=== PATIENT | male | born 1985 | race Caucasian/White ===

== ENCOUNTER 2017-11-06 11:06 | Inpatient (IN) ==
[2017-11-06] MEDS ORDERED: 0.9 % Sodium Chloride 1,000 ML IVC ONE ×2 (11:23→12:32)
[2017-11-06] MEDS ORDERED: 0.9 % Sodium Chloride 1,000 ML ONE (11:24)
[2017-11-06] MEDS ORDERED: Ondansetron 4 MG/2 ML VIAL ONE (11:27)
[2017-11-06] MEDS ORDERED: Ondansetron 4 MG/2 ML VIAL IVP ONE (11:32)
[2017-11-06] MEDS ORDERED: Pantoprazole 40 MG VIAL IVP ONE (11:32)
[2017-11-06] MEDS ORDERED: Racepinephrine Neb 0.5 ML VIAL IH ONE (11:40)
[2017-11-06 11:44] LABS: Basophils # 0.1 K/mcL (0.0-0.2); Basophils % 0.4 %; Eosinophils % 0.1 %; Hematocrit 47.2 % (37.5-50.1); Hemoglobin 17.1 g/dL (12.9-16.9); Immature Granulocytes % 0.6 % (0-4); Lymphocytes # 1.1 K/mcL (0.6-4.6); Mean Corpuscular HGB Conc 36.2 g/dL (31.6-35.5); Mean Corpuscular Hemoglobin 31.9 pg (28.0-33.3); Mean Corpuscular Volume 88.1 fL (83.0-100.0); Mean Platelet Volume 9.9 fL (9.4-12.4); Monocytes % 5.3 %; Neutrophils # 16.7 K/mcL (1.6-8.9); Platelet Count 356 K/mcL (140-400); Red Blood Count 5.36 M/mcL (4.19-5.50); Red Cell Distribution Width 12.6 % (11.5-14.5); Segmented Neutrophils % 87.6 %
--- NOTE | 2017-11-06 11:46 | Emergency Department Note ---
Disposition Clinical Impression: UGIB (upper gastrointestinal bleed) Medication reaction Qualifiers: Encounter type: initial encounter Qualified Code(s): T50.905A - Adverse effect of unspecified drugs, medicaments and biological substances, initial encounter Disposition: Still a Patient Condition: Fair Forms: ED Satisfaction Letter, Work/School Release General Adult HPI - General Chief complaint: ED Abdominal Pain Stated complaint: Vomiting blood Time Seen by Provider: 11/06/17 11:19 Source: patient Limitations: no limitations - History of Present Illness HPI Narrative: ED ATTESTATION NOTE: I examined this patient and my medical decision-making was reviewed with the Resident Physician/MACHINE FANCY STITCHER/PA/Student. I have personally performed a face to face evaluation on this patient & I agree with the documented findings, disposition and treatment plan as described except to the extent set forth below. Patient was seen with emergency medicine resident Shu Sy please see copy of her note for details of this encounter Briefly: 32-year-old male history of alcohol abuse is on disulfiram drank last night vomiting since 7:30 this morning since 8 AM blood in vomitus. He has some swelling of his uvula and posterior pharyngeal soft tissues. But no difficulty swallowing or phonating. He is not tachycardic he is actually hypertensive. Patient is can be given IV steroids and racemic epinephrine a liter of normal saline skin given IV Protonix IV Zofran screening get noncontrast CT of the thorax and abdominal pelvic areas. Patient getting screening labs. Admission highly anticipated. Disposition pending. Providing 45 minutes of critical care service for this patient. Pain Scale: 10 - Related Data Previous Rx's Medication Instructions Recorded Clindamycin [Cleocin] 450 mg PO Q6HR 7 Days capsule 07/18/15 cephALEXin [Keflex] 500 mg PO QID 7 Days capsule 09/22/15 HYDROcodone/Acet 5/325 mg [[place] 1 tab PO Q6H PRN #12 tab 09/23/16 5-325 mg] Hyoscyamine SL [Levsin SL] 0.125 mg SL TID #21 tab.subl 07/19/17 Ondansetron HCl [Zofran] 4 mg PO Q8HR PRN #21 tab 07/19/17 Cephalexin [Keflex] 500 mg PO TID #21 capsule 07/30/17 Sulfamethoxazole/Trimeth DS 1 each PO BID #14 tablet 07/30/17 [Bactrim DS] Albuterol Sulfate [Albuterol 2 puff IH Q4HR #1 hfa.aer.ad 09/07/17 Inhaler] Allergies Allergy/AdvReac Type Severity Reaction Status Date / Time No Known Allergies Allergy Verified 09/07/17 10:27 Past Medical History - Past Medical History Medical history: Reports: hypertension Surgical history: Reports: non-contributory Psychiatric history: Reports: anxiety - Social History Smoking Status: Never smoker Smokeless Tobacco Status: No Alcohol use: Reports: occasionally, heavy Drug use: Reports: marijuana Physical Exam - General Limitations: no limitations General appearance: alert, in distress Course Vital Signs Pulse Rate 103 11/06/17 11:13 Respiratory Rate 22 11/06/17 11:13 Blood Pressure 178/117 11/06/17 11:13 O2 Sat by Pulse Oximetry 96 11/06/17 11:13 Temperature 97.5 F L 11/06/17 11:31 Pulse Rate 103 11/06/17 11:31 Respiratory Rate 22 11/06/17 11:31 Blood Pressure 178/117 11/06/17 11:31 O2 Sat by Pulse Oximetry 96 11/06/17 11:31 Oxygen Delivery Oxygen Delivery Room Air
--- NOTE | 2017-11-06 11:47 | Emergency Department Note ---
Disposition Clinical Impression: UGIB (upper gastrointestinal bleed), Hematemesis with nausea, Lactic acidosis, Dehydration Medication reaction Qualifiers: Encounter type: initial encounter Qualified Code(s): T50.905A - Adverse effect of unspecified drugs, medicaments and biological substances, initial encounter Disulfiram adverse reaction Qualifiers: Encounter type: initial encounter Qualified Code(s): T50.6X5A - Adverse effect of antidotes and chelating agents, initial encounter Disposition: Admitted As Inpatient Condition: Fair General Adult HPI - General Chief complaint: ED Abdominal Pain Stated complaint: Vomiting blood Time Seen by Provider: 11/06/17 11:19 Source: patient Limitations: no limitations Nursing Notes Reviewed: Yes Vital Signs Reviewed: Yes - History of Present Illness HPI Narrative: Patient is a 32-year-old male with chronic alcohol use and hypertension who presents with chief complaint of hematemesis that started approximately 4 hours prior to arrival. Patient was started on Disulfirum recently for his alcohol use. He states he has been having intermittent episodes of abdominal pain and vomiting for the past few days. He last drank 4 shots of whiskey yesterday evening. This morning he woke up vomiting. Half an hour later around 0800, he started noticing dark coffee-ground like blood. He states he is starting to feel weak. This is associated with epigastric sharp abdominal pain and substernal sharp chest pain that is constant. He denies shortness of breath. He is continuing to have multiple episodes of this vomiting and his chest and abdominal pain is persistent. He is presenting here for further management. Pain Scale: 10 - Related Data Home Medications Medication Instructions Recorded Confirmed No Known Home Drugs 11/06/17 11/06/17 Allergies Allergy/AdvReac Type Severity Reaction Status Date / Time No Known Allergies Allergy Verified 11/06/17 12:45 All systems ED: reviewed and negative except as stated. Review of Systems: As Per HPI Constitutional: Denies: fever, chills Eyes: Denies: vision change ENT ED: Reports: throat pain. Denies: congestion Cardiovascular: Reports: chest pain. Denies: palpitations Respiratory: Denies: cough, dyspnea Gastrointestinal: Reports: hematemesis Genitourinary: Denies: dysuria Musculoskeletal: Denies: back pain Integumentary: Denies: rash Neurological: Reports: weakness. Denies: headache Hematological/Lymphatic: Reports: easy bleeding Past Medical History - Past Medical History Attestation: Yes The following information was validated with the patient. Source: patient Medical history: Reports: hypertension Surgical history: Reports: non-contributory Psychiatric history: Reports: anxiety - Social History Smoking Status: Never smoker Smokeless Tobacco Status: No Alcohol use: Reports: occasionally, heavy Drug use: Reports: marijuana Physical Exam - General Limitations: no limitations General appearance: alert, in distress (Pale-appearing, vomiting up coffee ground emesis) - Head Head exam: atraumatic, normocephalic - Eye Eye exam: Present: EOMI. Absent: scleral icterus - ENT ENT exam: other (There is bright red blood in his posterior oropharynx. Posterior oropharynx also has mild edema.) - Respiratory Respiratory exam: Present: normal lung sounds bilaterally. Absent: respiratory distress - Cardiovascular Cardiovascular exam: Present: regular rate, normal rhythm, normal heart sounds - Abdominal Exam Abdominal exam: Present: soft, Non-Tender - Extremities Exam Extremities exam: Present: full ROM - Neurological Exam Neurological exam: Present: alert, oriented X3 - Psychiatric Psychiatric exam: Present: normal affect, normal mood - Skin Skin exam: Present: warm, dry, pallor Course Vital Signs Pulse Rate 103 11/06/17 11:13 Respiratory Rate 22 11/06/17 11:13 Blood Pressure 178/117 11/06/17 11:13 O2 Sat by Pulse Oximetry 96 11/06/17 11:13 Temperature 97.9 F 11/06/17 14:29 Pulse Rate 84 11/06/17 14:29 Respiratory Rate 16 11/06/17 14:29 Blood Pressure 152/104 11/06/17 14:29 O2 Sat by Pulse Oximetry 100 11/06/17 14:29 Oxygen Delivery Oxygen Delivery Room Air Medical Decision Making - [facility] Narrative Medical decision making narrative: Patient is presenting with active coffee ground hematemesis. 2 peripheral IVs were initiated. Patient is borderline tachycardic. Patient's vomiting may be secondary to the patient consuming alcohol while on disulfiram. We have a concern for esophageal tears, bleeding varices, Boerhaave syndrome. We will send CBC, BMP, hepatic panel, lipase. Patient is also complaining of some chest pain. We will get CT of his chest and abdomen without contrast. We will give Zofran 8 mg, Protonix, IV fluids. 11:40 Patient was complaining of his throat feeling swollen. We reevaluated him. He has bright red blood in his posterior oropharynx. There is some mild swelling. At this time racemic epinephrine and methylprednisolone was ordered. 11:50 Respiratory therapy at bedside. Patient is receiving racemic epinephrine at this time. Labs reviewed. Lactic acid is 4. Hemoglobin is 17.1. Potassum 2.9. Will replace. 12:30 Upon reevaluation, the patient is feeling slightly better. He is looking more stable. Oral examination showed less bright red blood and no increase in his posterior pharyngeal edema. He can go to CT at this time. He is vomiting less. Give another liter of fluids as the patient is tachycardic. Alcohol level 130. 14:15 Vitals improved after 2 liters IV normal saline. CT results reviewed. Patient has no pneumomediastinum, Boerhaave's. Results show moderate hiatal hernia with nonspecific thickening of distal esophagus and herniated stomach which could represent esophagitis or GERD. Upper endoscopy was recommended per radiologist. Hospitalist consulted for admission for disulfiram reaction, lactic acidosis, and dehydration. Findings discussed with patient and his girlfriend. All questions answered. They are agreeable to plan of care. 14:25 Discussed with hospitalist, Dr. Stringer, who will accept admission. Consult for GI placed. - Medical Records Medical records reviewed: Yes I reviewed the patient's medical records. - Lab Data Lab results reviewed: Yes I reviewed the patient's lab results. Result diagrams: 11/06/17 11:21 11/06/17 11:21 Lab Results 11/06/17 11/06/17 11/06/17 Range/Units 11:21 11:21 11:27 WBC 19.1 H (4.3-11.1) K/mcL RBC 5.36 (4.19-5.50) M/mcL Hgb 17.1 H (12.9-16.9) g/dL Hct 47.2 (37.5-50.1) % MCV 88.1 (83.0-100.0) fL MCH 31.9 (28.0-33.3) pg MCHC 36.2 H (31.6-35.5) g/dL RDW 12.6 (11.5-14.5) % Plt Count 356 (140-400) K/mcL MPV 9.9 (9.4-12.4) fL Immature Gran % 0.6 (0-4) % Seg Neutrophils % 87.6 % Lymphocytes % 6.0 % Monocytes % 5.3 % Eosinophils % 0.1 % Basophils % 0.4 % Neutrophils # 16.7 H (1.6-8.9) K/mcL Lymphocytes # 1.1 (0.6-4.6) K/mcL Monocytes # 1.0 (0.0-1.3) K/mcL Eosinophils # 0.0 (0.0-0.6) K/mcL Basophils # 0.1 (0.0-0.2) K/mcL Sodium 139 (136-145) mEq/L Potassium 2.9 L (3.5-5.1) mEq/L Chloride 100 (98-107) mEq/L Carbon Dioxide 19 L (23-29) mEq/L BUN 15 (6-20) mg/dL Creatinine 0.92 (0.70-1.30) mg/dL Est GFR ( Amer) > 60 (> 60) Est GFR (Non-Af Amer) > 60 (> 60) BUN/Creatinine Ratio 16 (6-26) Glucose 185 H (70-105) mg/dL Calculated Osmolality 294 (280-300) Lactic Acid 4.0 H* (0.5-2.2) mmol/L Calcium 9.4 (8.6-10.3) mg/dL Magnesium 2.0 (1.6-2.6) mg/dL Total Bilirubin 0.5 (0.3-1.0) mg/dL Direct Bilirubin 0.1 (0.0-0.2) mg/dL Indirect Bilirubin 0.4 (0.0-1.2) mg/dL AST 34 (13-39) Units/L ALT 16 (7-52) Units/L Alkaline Phosphatase 89 (34-104) Units/L Serum Total Protein 7.7 (6.4-8.9) g/dL Albumin 5.0 (3.5-5.7) g/dL Globulin 2.7 (2.4-3.5) g/dL Albumin/Globulin Ratio 1.9 (1.1-2.2) Amylase 55 (29-103) Units/L Lipase 16 (11-82) Units/L Urine Color (Yellow) Urine Clarity (Clear) Urine pH (5.0-8.0) pH Units Ur Specific [place] (1.010-1.025) Urine Protein (Neg-Trace) mg/dL Urine Glucose (UA) (Normal) mg/dL Urine Ketones (Negative) mg/dL Urine Blood (Negative) Urine Nitrite (Negative) Urine Bilirubin (Negative) Urine Urobilinogen (Normal) mg/dL Ur Leukocyte Esterase (Negative) Urine Microscopic RBC (0-3) per hpf Urine Microscopic WBC (0-3) per hpf Ur Squamous Epith Cells (None-Few) per lpf Urine Bacteria (None-Few) per hpf Hyaline Casts (None-Few) per lpf Ur Culture Indicated? (NO) Ethyl Alcohol 130 H (Less than 10) mg/dL 11/06/17 Range/Units 13:38 WBC (4.3-11.1) K/mcL RBC (4.19-5.50) M/mcL Hgb (12.9-16.9) g/dL Hct (37.5-50.1) % MCV (83.0-100.0) fL MCH (28.0-33.3) pg MCHC (31.6-35.5) g/dL RDW (11.5-14.5) % Plt Count (140-400) K/mcL MPV (9.4-12.4) fL Immature Gran % (0-4) % Seg Neutrophils % % Lymphocytes % % Monocytes % % Eosinophils % % Basophils % % Neutrophils # (1.6-8.9) K/mcL Lymphocytes # (0.6-4.6) K/mcL Monocytes # (0.0-1.3) K/mcL Eosinophils # (0.0-0.6) K/mcL Basophils # (0.0-0.2) K/mcL Sodium (136-145) mEq/L Potassium (3.5-5.1) mEq/L Chloride (98-107) mEq/L Carbon Dioxide (23-29) mEq/L BUN (6-20) mg/dL Creatinine (0.70-1.30) mg/dL Est GFR ( Amer) (> 60) Est GFR (Non-Af Amer) (> 60) BUN/Creatinine Ratio (6-26) Glucose (70-105) mg/dL Calculated Osmolality (280-300) Lactic Acid (0.5-2.2) mmol/L Calcium (8.6-10.3) mg/dL Magnesium (1.6-2.6) mg/dL Total Bilirubin (0.3-1.0) mg/dL Direct Bilirubin (0.0-0.2) mg/dL Indirect Bilirubin (0.0-1.2) mg/dL AST (13-39) Units/L ALT (7-52) Units/L Alkaline Phosphatase (34-104) Units/L Serum Total Protein (6.4-8.9) g/dL Albumin (3.5-5.7) g/dL Globulin (2.4-3.5) g/dL Albumin/Globulin Ratio (1.1-2.2) Amylase (29-103) Units/L Lipase (11-82) Units/L Urine Color Yellow (Yellow) Urine Clarity Clear (Clear) Urine pH 7.0 (5.0-8.0) pH Units Ur Specific [place] 1.015 (1.010-1.025) Urine Protein 30 H (Neg-Trace) mg/dL Urine Glucose (UA) 500 H (Normal) mg/dL Urine Ketones 15 H (Negative) mg/dL Urine Blood Negative (Negative) Urine Nitrite Negative (Negative) Urine Bilirubin Negative (Negative) Urine Urobilinogen Normal (Normal) mg/dL Ur Leukocyte Esterase Negative (Negative) Urine Microscopic RBC 0-3 (0-3) per hpf Urine Microscopic WBC 0-3 (0-3) per hpf Ur Squamous Epith Cells None Seen (None-Few) per lpf Urine Bacteria None Seen (None-Few) per hpf Hyaline Casts None Seen (None-Few) per lpf Ur Culture Indicated? NO (NO) Ethyl Alcohol (Less than 10) mg/dL - Radiology Data Radiology results reviewed: Yes I reviewed the patient's radiology results. Abdomen/Pelvis CT 11/06/17 11:33 IMPRESSION: Chest: No acute findings on this noncontrast chest CT. Abdomen and pelvis: Moderate hiatal hernia with nonspecific thickening of the distal esophagus and herniated stomach. Findings could represent esophagitis, or gastroesophageal reflux. Other etiologies are not excluded. This could potentially cause patient's reported symptoms. Recommend upper endoscopy for further evaluation. Markedly distended urinary bladder with mild bilateral renal pelviectasis. No evidence of renal or ureteral calculus. Mild nonspecific periapical nephric stranding appears reasonably symmetric. No discrete adrenal nodule. Nonspecific inflammation in the region of the bilateral adrenal glands may be from adjacent perinephric stranding. D/ / Jason Bagley MD / Jason Bagley MD Interpreting Provider: Jason Bagley MD Chest CT 11/06/17 11:33 IMPRESSION: Chest: No acute findings on this noncontrast chest CT. Abdomen and pelvis: Moderate hiatal hernia with nonspecific thickening of the distal esophagus and herniated stomach. Findings could represent esophagitis, or gastroesophageal reflux. Other etiologies are not excluded. This could potentially cause patient's reported symptoms. Recommend upper endoscopy for further evaluation. Markedly distended urinary bladder with mild bilateral renal pelviectasis. No evidence of renal or ureteral calculus. Mild nonspecific periapical nephric stranding appears reasonably symmetric. No discrete adrenal nodule. Nonspecific inflammation in the region of the bilateral adrenal glands may be from adjacent perinephric stranding. D/ / Jason Bagley MD / Jason Bagley MD Interpreting Provider: Jason Bagley MD - EKG Data EKG #1 EKG attestation: Yes I reviewed and interpreted this EKG. EKG results narrative: EKG on 11/06/2017 at 11:25 shows sinus rhythm with heart rate 92. NE interval 166. QT 383. QTC 474. No ST elevation compared to EKG on 07/19/2017. This EKG showed sinus bradycardia. Otherwise there is no other changes.
[2017-11-06 12:07] LABS: Alanine Aminotransferase 16 Units/L (7-52); Albumin/Globulin Ratio 1.9 (1.1-2.2); Alkaline Phosphatase 89 Units/L (34-104); Amylase 55 Units/L (29-103); Aspartate Amino Transferase 34 Units/L (13-39); BUN/Creatinine Ratio 16 (6-26); Bilirubin,Direct 0.1 mg/dL (0.0-0.2); Bilirubin,Indirect 0.4 mg/dL (0.0-1.2); Bilirubin,Total 0.5 mg/dL (0.3-1.0); Blood Urea Nitrogen 15 mg/dL (6-20); Calcium 9.4 mg/dL (8.6-10.3); Carbon Dioxide 19 mEq/L (23-29); Chloride 100 mEq/L (98-107); Globulin 2.7 g/dL (2.4-3.5); Glucose 185 mg/dL (70-105); Lipase 16 Units/L (11-82); Osmolality,Calculated 294 (280-300); Potassium 2.9 mEq/L (3.5-5.1); Sodium 139 mEq/L (136-145); Total Protein 7.7 g/dL (6.4-8.9); eGFR For Non-African Americans > 60 (> 60)
[2017-11-06 12:55] LABS: Ethanol 130 mg/dL (Less than 10)
[2017-11-06 13:52] LABS: Bilirubin,Urine Negative (Negative); Blood,Urine Negative (Negative); Color,Urine Yellow (Yellow); Glucose,Urine (UA) 500 mg/dL (Normal); Ketones,Urine 15 mg/dL (Negative); Leukocyte Esterase,Urine Negative (Negative); Nitrite,Urine Negative (Negative); Protein,Urine 30 mg/dL (Neg-Trace); Specific Gravity,Urine 1.015 (1.010-1.025); Urobilinogen,Urine Normal (Normal)
[2017-11-06 13:55] LABS: Bacteria,Urine None Seen per hpf (None-Few); Hyaline Casts,Urine None Seen per lpf (None-Few); RBC,Urine 0-3 per hpf (0-3); Squamous Epithelial Cell,Urine None Seen per lpf (None-Few); WBC,Urine 0-3 per hpf (0-3)
[2017-11-06 13:59] LABS: Clarity,Urine Clear (Clear)
--- NOTE | 2017-11-06 15:59 | Internal Med History&Physical ---
Date of Encounter: 11/06/17 Time of Encounter: 15:00 Internal Medicine - H&P: HPI Chief complaint: Nausea and vomiting with hematemesis Admitted From: Home History of present illness: Patient is a 32-year-old male with significant history of alcohol abuse/ dependence who presents to the ER on 11/06/17 due to nausea and vomiting. Patient reports that he was trying to stop drinking and was placed on Antabuse by physician but apparently started drinking again and has experienced nausea and vomiting with hematemesis. Patient was concerned so decided come into the ER for evaluation. In the ER, patient was found to have metabolic acidosis with a lactic acid of 4.0 and a anion gap of 20. Patient was found to have a blood alcohol level of 13 0 mg/dL. Patient will be admitted to the progressive unit for about acidosis secondary to alcohol intoxication. Past Med Surg Social Fam HX - Past Medical History Medical history: hypertension Additional medical history: collapsed tricuspid valve, damaged aortic valve Psychiatric history: anxiety - Past Surgical History Surgical History: non-contributory Additional surgical history: facial reconstruction. hydrocele surgery,. lymph node removal - Social History Smoking Status: Never smoker Smokeless Tobacco Status: No Alcohol use: occasionally, heavy Drug use: marijuana - Additional Family History Additional family history: Noncontributory Internal Medicine - H&P: Meds No Known Home Drugs 11/06/17 [History] 3 Allergy/AdvReac Type Severity Reaction Status Date / Time No Known Allergies Allergy Verified 11/06/17 12:45 All Systems PM: A 10-system review of systems was performed and is negative for pertinent findings except as documented above in the HPI. - Constitutional Vitals: Temp Pulse Resp BP Pulse Ox 97.9 F 79 16 161/112 100 11/06/17 14:29 11/06/17 15:27 11/06/17 15:27 11/06/17 15:27 11/06/17 15:27 General appearance: Present: no acute distress Exam: As below - Eye Eye exam: Present: normal appearance - ENT ENT exam: Present: mucous membranes moist - Respiratory Respiratory exam: Present: CTAB. Absent: accessory muscle use, rales, rhonchi, wheezes - Cardiovascular Cardiovascular exam: Present: RRR, +S1, +S2. Absent: diastolic murmur, gallop, rubs, systolic murmur - GI/Abdominal GI/Abdominal exam: Present: tenderness (Epigastric and right upper quadrant tenderness to palpation). Absent: distended - Extremities Exam Extremities exam: Absent: pedal edema - Neurological Exam Neurological exam: Present: oriented X3 - Psychiatric Psychiatric exam: Present: normal mood - Skin Skin exam: Present: normal color Internal Med - H&P Results - Labs CBC & Chem 7: 11/06/17 11:21 11/06/17 11:21 - Assessment and plan (1) Disulfiram adverse reaction Current Visit: Yes Status: Acute Assessment and plan: Patient started drinking on Antabuse Supportive care with IV fluids and antiemetics Qualifiers: Encounter type: initial encounter Qualified Code(s): T50.6X5A - Adverse effect of antidotes and chelating agents, initial encounter (2) Hematemesis with nausea Current Visit: Yes Status: Acute Assessment and plan: Patient reports of multiple episodes a hematemesis and was concerned and therefore came to the ER for evaluation. Patient's hemoglobin is stable and actually is hemoconcentrated Will continue to monitor (3) UGIB (upper gastrointestinal bleed) Current Visit: Yes Status: Acute Assessment and plan: Patient with a one-day history of hematemesis as above Patient is hemodynamically stable and without anemia Will continue to monitor (4) Lactic acidosis Current Visit: Yes Status: Acute Assessment and plan: Patient with a lactic acid of 4.0 and bicarbonate of 19; anion gap of 20 Suspect secondary to alcohol intoxication above Will continue IV fluids and monitor (5) Hypokalemia Current Visit: Yes Status: Acute Assessment and plan: Patient with potassium of 2.9 Will give potassium replacements and monitor (6) Alcohol abuse Current Visit: Yes Status: Acute Assessment and plan: Will place patient on CIWA protocol (7) DVT prophylaxis Current Visit: Yes Status: Acute Assessment and plan: Patient low risk and mobile - Time Spent With Patient Total time spent is greater than 50% in coordination of care (as documented) at patient's floor/unit and/or counseling patient:
[2017-11-06] MEDS ORDERED: Naloxone 0.4 MG/ML INJ IVP PRN (16:16)
[2017-11-06] MEDS ORDERED: 0.9 % Sodium Chloride 250 ML ONE (16:26)
[2017-11-06] MEDS ORDERED: 0.9 % Sodium Chloride 250 ML IVC ONE (16:31)
[2017-11-06 17:25] LABS: Hematocrit 45.1 % (37.5-50.1); Hemoglobin 16.2 g/dL (12.9-16.9)
[2017-11-06 17:35] LABS: Basophils % 0.1 %; Hematocrit 45.5 % (37.5-50.1); Hemoglobin 16.4 g/dL (12.9-16.9); Immature Granulocytes % 0.4 % (0-4); Immature Platelets 4.5 % (1.1-6.1); Lymphocytes # 0.3 K/mcL (0.6-4.6); Lymphocytes % 2.4 %; Mean Corpuscular Hemoglobin 32.4 pg (28.0-33.3); Mean Corpuscular Volume 89.9 fL (83.0-100.0); Mean Platelet Volume 10.1 fL (9.4-12.4); Monocytes # 0.3 K/mcL (0.0-1.3); Monocytes % 1.9 %; Neutrophils # 13.2 K/mcL (1.6-8.9); Platelet Count 256 K/mcL (140-400); Red Blood Count 5.06 M/mcL (4.19-5.50); Red Cell Distribution Width 12.5 % (11.5-14.5); Segmented Neutrophils % 95.2 %
[2017-11-06] MEDS: Ondansetron 4 MG/2 ML VIAL IVP PRN (17:56)
[2017-11-06] MEDS: Ringers Solution, Lactated 1,000 ML IVC SCH (17:56)
[2017-11-06] MEDS: Acetaminophen 325 MG TABLET PO PRN (20:07)
[2017-11-06] MEDS ORDERED: *HR* Promethazine 25 MG/ML VIAL IVP PRN (20:24)
[2017-11-06] MEDS ORDERED: Chloraseptic Spray 177 ML BOTTLE MM PRN (20:26)
[2017-11-06 21:13] LABS: Hematocrit 45.4 % (37.5-50.1); Hemoglobin 16.5 g/dL (12.9-16.9)
[2017-11-06 21:20] LABS: Amphetamine Screen,Urine Negative ng/mL (Cutoff=1000); Barbiturate Screen,Urine Negative ng/mL (Cutoff=200); Benzodiazepines Screen,Urine Negative ng/mL (Cutoff=200); Cannabinoid Screen,Urine Positive ng/mL (Cutoff = 50); Cocaine Screen,Urine Positive ng/mL (Cutoff= 300); Opiate Screen,Urine Negative ng/mL (Cutoff=300); Phencyclidine Screen,Urine Negative ng/mL (Cutoff=25)
[2017-11-07] MEDS: Ringers Solution, Lactated 1,000 ML IVC SCH ×2 (02:20→11:03)
[2017-11-07 06:13] LABS: INR 1.1; Prothrombin Time 11.9 Seconds (9.4-12.1)
[2017-11-07 06:24] LABS: BUN/Creatinine Ratio 16 (6-26); Blood Urea Nitrogen 13 mg/dL (6-20); Calcium 8.9 mg/dL (8.6-10.3); Carbon Dioxide 21 mEq/L (23-29); Chloride 107 mEq/L (98-107); Glucose 153 mg/dL (70-105); Magnesium 1.9 mg/dL (1.6-2.6); Osmolality,Calculated 287 (280-300); Potassium 3.9 mEq/L (3.5-5.1); Sodium 137 mEq/L (136-145); eGFR For Non-African Americans > 60 (> 60)
[2017-11-07 06:57] LABS: Troponin I < 0.03 ng/mL (< 0.04)
[2017-11-07] MEDS: Thiamine (B-1) 100 MG TABLET PO SCH (08:31)
[2017-11-07] MEDS: Vitamin B Complex/Vit C/Vit E 1 EACH TABLET PO SCH (08:31)
[2017-11-07] MEDS: Folic Acid 1 MG TABLET PO SCH (08:31)
--- NOTE | 2017-11-07 09:07 | Internal Med Progress Note ---
Hospitalist Progress Note - Encounter Date of Encounter: 11/07/17 Time of Encounter: 11:00 - Subjective Interval History: Patient presented with hematemesis secondary to drinking alcohol on Antabuse Patient found to have a blood alcohol level of 130mg/dl on admission and also positive for cocaine and THC on urine drug tox Patient scheduled for EGD on 11/08/17 - Exam Vitals: Temp Pulse Resp BP Pulse Ox 98.4 F 80 18 136/97 98 11/07/17 07:33 11/07/17 08:40 11/07/17 07:33 11/07/17 07:33 11/07/17 07:33 Exam: A Gen.: Nonacute distress, alert and oriented 3 ENT: Mucosal membranes moist Respiratory: Lungs are clear to auscultation bilaterally without any wheezing rhonchi or rales Cardiovascular: Normal S1 and S2 regular rate rhythm no murmurs rubs or gallops Abdomen: Soft, nontender and nondistended with positive bowel sounds Extremities: No lower extremity edema Skin: Normal color - Assessment and Plan (1) Disulfiram adverse reaction Current Visit: Yes Status: Acute Assessment and Plan: Patient started drinking on Antabuse Supportive care with IV fluids and antiemetics (2) Hematemesis with nausea Current Visit: Yes Status: Acute Assessment and Plan: Patient reported of multiple episodes a hematemesis on admission Hemoglobin stable; continue to monitor (3) UGIB (upper gastrointestinal bleed) Current Visit: Yes Status: Acute Assessment and Plan: Patient with a one-day history of hematemesis as above Patient is hemodynamically stable and without anemia Will continue to monitor (4) Elevated BP without diagnosis of hypertension Current Visit: Yes Status: Acute Assessment and Plan: Patient's blood pressures elevated but improving Suspect secondary to cocaine abuse Will continue to monitor (5) Lactic acidosis Current Visit: Yes Status: Acute Assessment and Plan: Resolved; suspect secondary to alcohol intoxication above Will decrease IV fluids (6) Hypokalemia Current Visit: Yes Status: Acute Assessment and Plan: Resolved; continue to monitor (7) Alcohol abuse Current Visit: Yes Status: Acute Assessment and Plan: Will place patient on CIWA protocol Case management consulted for drug alcohol dependence (8) Drug abuse Current Visit: Yes Status: Acute Assessment and Plan: Patient's urine drug tox positive for cocaine and THC Case management already consulted for drug/alcohol dependence (9) DVT prophylaxis Current Visit: Yes Status: Acute Assessment and Plan: Patient low risk and mobile - Time Spent with Patient Total time spent is greater than 50% in coordination of care (as documented) at patient's floor/unit and/or counseling patient: Internal Medicine: Result - Labs CBC & Chem 7: 11/07/17 09:08 11/07/17 05:49 Labs: Short CBC 11/06/17 11/06/17 11/06/17 Range/Units 17:00 17:00 21:03 WBC 13.9 H (4.3-11.1) K/mcL Hgb 16.2 16.4 16.5 (12.9-16.9) g/dL Hct 45.1 45.5 45.4 (37.5-50.1) % Plt Count 256 (140-400) K/mcL Neutrophils # 13.2 H (1.6-8.9) K/mcL BMP 11/06/17 11/07/17 21:03 05:49 Sodium 137 Potassium 3.8 D 3.9 Chloride 107 Carbon Dioxide 21 L BUN 13 Creatinine 0.79 Glucose 153 H Calcium 8.9 Cardiac Enzymes 11/07/17 Range/Units 05:49 Troponin I < 0.03 (< 0.04) ng/mL - ABG Interpretation ABG results: PT/INR, D-dimer PT 11.9 Seconds (9.4-12.1) 11/07/17 05:49 - VTE Reasons for not Prescribing Prophylaxis: Treatment not Indicated - Low risk for VTE Consult Discharge Plan - Plan Referrals: NONE,PCP [Primary Care Provider] - (1) Disulfiram adverse reaction Qualifiers: Encounter type: initial encounter Qualified Code(s): T50.6X5A - Adverse effect of antidotes and chelating agents, initial encounter
[2017-11-07 09:23] LABS: Basophils % 0.2 %; Eosinophils % 0.1 %; Hematocrit 42.1 % (37.5-50.1); Hemoglobin 15.3 g/dL (12.9-16.9); Lymphocytes # 0.6 K/mcL (0.6-4.6); Lymphocytes % 3.9 %; Mean Corpuscular HGB Conc 36.3 g/dL (31.6-35.5); Mean Corpuscular Hemoglobin 32.8 pg (28.0-33.3); Mean Corpuscular Volume 90.3 fL (83.0-100.0); Mean Platelet Volume 10.7 fL (9.4-12.4); Monocytes # 1.1 K/mcL (0.0-1.3); Monocytes % 6.3 %; Neutrophils # 14.7 K/mcL (1.6-8.9); Nucleated Red Blood Cells 0.2 /100 WBC (0); Platelet Count 236 K/mcL (140-400); Red Blood Count 4.66 M/mcL (4.19-5.50); Red Cell Distribution Width 12.5 % (11.5-14.5); Segmented Neutrophils % 88.5 %
[2017-11-07] MEDS: Ondansetron 4 MG/2 ML VIAL IVP PRN (16:51)
[2017-11-07] MEDS: *HR* LORazepam 2 MG/ML VIAL IVP PRN (20:34)
[2017-11-08] MEDS: Thiamine (B-1) 100 MG TABLET PO SCH (07:58)
[2017-11-08] MEDS: Vitamin B Complex/Vit C/Vit E 1 EACH TABLET PO SCH (07:58)
[2017-11-08] MEDS: Folic Acid 1 MG TABLET PO SCH (07:58)
[2017-11-08 09:00] LABS: Basophils % 0.2 %; Eosinophils % 0.1 %; Hematocrit 45.1 % (37.5-50.1); Hemoglobin 15.6 g/dL (12.9-16.9); Immature Granulocytes % 0.4 % (0-4); Immature Platelets 4.6 % (1.1-6.1); Lymphocytes # 1.2 K/mcL (0.6-4.6); Lymphocytes % 12.4 %; Mean Corpuscular HGB Conc 34.6 g/dL (31.6-35.5); Mean Corpuscular Hemoglobin 31.9 pg (28.0-33.3); Mean Corpuscular Volume 92.2 fL (83.0-100.0); Mean Platelet Volume 10.5 fL (9.4-12.4); Monocytes # 0.8 K/mcL (0.0-1.3); Monocytes % 8.9 %; Neutrophils # 7.4 K/mcL (1.6-8.9); Platelet Count 223 K/mcL (140-400); Red Blood Count 4.89 M/mcL (4.19-5.50); Red Cell Distribution Width 12.7 % (11.5-14.5)
[2017-11-08 10:00] LABS: BUN/Creatinine Ratio 20 (6-26); Blood Urea Nitrogen 17 mg/dL (6-20); Carbon Dioxide 26 mEq/L (23-29); Chloride 104 mEq/L (98-107); Glucose 104 mg/dL (70-105); Potassium 3.7 mEq/L (3.5-5.1); Sodium 136 mEq/L (136-145); eGFR For Non-African Americans > 60 (> 60)
[2017-11-08 10:01] LABS: Calcium 8.9 mg/dL (8.6-10.3); Osmolality,Calculated 284 (280-300)
--- NOTE | 2017-11-08 11:19 | Gastroenterology Consult Note ---
<GodfreyTriston espinal Peter - Last Filed: 11/08/17 11:17> Date of Encounter: 11/08/17 Time of Encounter: 10:10 - Assessment and plan (1) Hematemesis with nausea Current Visit: Yes Status: Acute Assessment and plan: Patient consuming alcohol while taking Antabuse. Hgb 15.3. Continue to monitor CBC. Plan for EGD today to r/o esophagitis, gastritis, duodenitis, PUD, MW tear , or AVM. Keep patient NPO for scope. (2) Disulfiram adverse reaction Current Visit: Yes Status: Acute Assessment and plan: Patient consuming alcohol while taking Antabuse. Qualifiers: Encounter type: initial encounter Qualified Code(s): T50.6X5A - Adverse effect of antidotes and chelating agents, initial encounter (3) Alcohol abuse Current Visit: Yes Status: Acute (4) Drug abuse Current Visit: Yes Status: Acute Assessment and plan: Positive for cocaine and marijuana. - Time Spent With Patient Total time spent is greater than 50% in coordination of care (as documented) at patient's floor/unit and/or counseling patient: GI History of Present Illness - Data of Consult Patient: new to practice Consult date: 11/08/17 Requesting Physician: Nahun Huang MD - Consult Narrative Reason for consult: Hematemesis History of present illness: Mr. Cheema is a 32 year old male with PMHx of HTN, alcohol abuse who presented to the ED with complaints of nausea and vomiting with hematemesis. He states he was trying to stop drinking and was started on Antabuse but started drinking again and experienced nausea, vomiting, and hematemesis. In the ER, patient was found to have metabolic acidosis with a lactic acid of 4.0 and a anion gap of 20. Patient was found to have a blood alcohol level of 130 mg/dL, positive for cocaine and marijuana. CT chest, A/P shows moderate hiatal hernia with a nonspecific thickening of the distal esophagus and herniated stomach which could represent esophagitis, or GERD. Procedures: None NSAIDs: None Anticoagulation: None Past Med Surg Social Fam HX - Past Medical History Medical history: hypertension, migraine Additional medical history: collapsed tricuspid valve, damaged aortic valve Psychiatric history: anxiety - Past Surgical History Surgical History: non-contributory Additional surgical history: facial reconstruction. hydrocele surgery,. lymph node removal. left leg surgery - Social History Smoking Status: Never smoker Smokeless Tobacco Status: No Alcohol use: heavy Drug use: marijuana - Gastrointestinal Gastrointestinal: Present: as per HPI - Constitutional Constitutional: as per HPI - EENT Eyes: as per HPI Ears: Present: as per HPI Nose, mouth and throat: Present: as per HPI - Cardiovascular Cardiovascular ROS: Present: as per HPI - Respiratory Respiratory IM: Present: as per HPI - Genitourinary Genitourinary: Absent: change in color, Urinary frequency - Neurological ROS Neurological GI: Present: as per HPI - Hematologic/Lymphatic Hematologic/Lymphatic pediatric: Present: as per HPI - Musculoskeletal Musculoskeletal ROS GI: Present: as per HPI - Integumentary Integumentary GI: Present: as per HPI - Psychiatric ROS Psychiatric GI: Present: as per HPI - Endocrine Endocrine IM: Present: as per HPI - Constitutional Vitals: Temp Pulse Resp BP Pulse Ox 98.4 F 78 18 151/107 98 11/08/17 07:51 11/08/17 07:51 11/08/17 07:51 11/08/17 07:51 11/08/17 07:51 General appearance: Present: cooperative, A&O X 3, no acute distress, answers questions appropriately - Head Head exam: Present: atraumatic, normocephalic - Eye Eye exam: Present: normal appearance, sclera anicteric - ENT ENT exam: Present: mucous membranes dry - Neck Neck exam general surgery: Present: normal inspection, trachea midline - Respiratory Respiratory exam: Present: CTAB. Absent: rales, rhonchi, wheezes - Cardiovascular Cardiovascular exam: Present: RRR, +S1, +S2 - GI/Abdominal GI/Abdominal exam: Present: soft, no peritoneal signs. Absent: distended, firm , guarding, tenderness - Rectal Rectal exam: Present: deferred - Extremities Exam Extremities exam: Present: warm - Neurological Exam Neurological exam: Present: no focal deficits - Psychiatric Psychiatric exam: Present: normal affect, normal mood - Skin Skin exam: Present: dry, intact, normal color, warm Results - Labs CBC & Chem 7: 11/08/17 08:23 11/08/17 08:23 Labs: Last Result Calcium 8.9 mg/dL (8.6-10.3) 11/08/17 08:23 Troponin I < 0.03 ng/mL (< 0.04) 11/07/17 05:49 Urine Opiates Screen Negative ng/mL (Urhmmf=772) 11/06/17 20:35 Entire Visit Hgb 15.6 g/dL (12.9-16.9) 11/08/17 08:23 Hct 45.1 % (37.5-50.1) 11/08/17 08:23 PT 11.9 Seconds (9.4-12.1) 11/07/17 05:49 Total Bilirubin 0.5 mg/dL (0.3-1.0) 11/06/17 11:21 AST 34 Units/L (13-39) 11/06/17 11:21 ALT 16 Units/L (7-52) 11/06/17 11:21 Amylase 55 Units/L (29-103) 11/06/17 11:21 Lipase 16 Units/L (11-82) 11/06/17 11:21 - ABG ABG results: PT/INR, D-dimer PT 11.9 Seconds (9.4-12.1) 11/07/17 05:49 Consult Discharge Plan - Plan Referrals: Rosa Sandoval DO [Resident] - 11/15/17 2:00 pm (PLEASE TAKE THE NEW PATIENT PACKET WITH YOU THAT YOU RECEIVE IN THE MAIL FILLED OUT TO YOUR APPOINTMENT. PLEASE TAKE WITH YOU TO YOUR APPOINTMENT INS. CARDS, PICTURE ID, ALL MEDICATIOINS INCLUDING OVER THE COUNTER MEDS TO THE APPOINTMENT. THIS OFFICE DOES NOT GIVE OUT CONTROLLED DRUGS. IF YOU NEED TO CANCEL PLEASE CALL [phone] 24 HOURS PRIOR TO YOUR APPOINTMENT) Peter Bermeo MD [Partnered Physician] - (SENT WEB REQUEST ON 11-08-17 @[id number]) <Peter Bermeo - Last Filed: 11/08/17 14:03> Date of Encounter: 11/08/17 Time of Encounter: 12:00 - Time Spent With Patient Total time spent is greater than 50% in coordination of care (as documented) at patient's floor/unit and/or counseling patient: GI History of Present Illness - Data of Consult Requesting Physician: Nahun Huang MD - Consult Narrative History of present illness: Mr. Cheema is a 32 year old male - Constitutional Vitals: Temp Pulse Resp BP Pulse Ox 98.4 F 64 18 176/115 96 11/08/17 12:20 11/08/17 12:20 11/08/17 12:20 11/08/17 12:20 11/08/17 12:20 Results - Labs CBC & Chem 7: 11/08/17 08:23 11/08/17 08:23 Labs: Last Result Calcium 8.9 mg/dL (8.6-10.3) 11/08/17 08:23 Troponin I < 0.03 ng/mL (< 0.04) 11/07/17 05:49 Urine Opiates Screen Negative ng/mL (Uyfdvq=505) 11/06/17 20:35 Entire Visit Hgb 15.6 g/dL (12.9-16.9) 11/08/17 08:23 Hct 45.1 % (37.5-50.1) 11/08/17 08:23 PT 11.9 Seconds (9.4-12.1) 11/07/17 05:49 Total Bilirubin 0.5 mg/dL (0.3-1.0) 11/06/17 11:21 AST 34 Units/L (13-39) 11/06/17 11:21 ALT 16 Units/L (7-52) 11/06/17 11:21 Amylase 55 Units/L (29-103) 11/06/17 11:21 Lipase 16 Units/L (11-82) 11/06/17 11:21 - ABG ABG results: PT/INR, D-dimer PT 11.9 Seconds (9.4-12.1) 11/07/17 05:49 - Attending Attestation I have personally performed a face to face evaluation on this patient. I have reviewed and agree with the care plan. History and Exam by me shows: Patient seen. Patient 32-year-old male with alcohol abuse who was admitted because of her hematemesis and abnormal CT of the esophagus showing thickening. On examination: Abdomen is soft. Assessment: Patient with the hematemesis and the thickening of esophagus on CT concerning for esophagitis. Recommendation: Continue PPI, EGD to rule out esophagitis and other causes for patient hematemesis
[2017-11-08] MEDS ORDERED: Propofol 500 MG/50 ML INFUS..BTL ONE (11:35)
--- NOTE | 2017-11-08 11:50 | Internal Med Progress Note ---
Hospitalist Progress Note - Encounter Date of Encounter: 11/08/17 Time of Encounter: 11:48 - Subjective Interval History: 32-year-old with a past medical history significant for substance abuse, patient recently is started on Antabuse and started drinking while on the medication. Presented to the emergency room complaining of hematemesis. Patient evaluated at bedside reports feeling nauseated, denies abdominal pain. Last time he had hematemesis was on Tuesday. Denies chest pain, shortness of breath, Or lightheadedness with ambulation. - Exam Vitals: Temp Pulse Resp BP Pulse Ox 98.4 F 78 18 151/107 98 11/08/17 07:51 11/08/17 07:51 11/08/17 07:51 11/08/17 07:51 11/08/17 07:51 Exam: General: Alert and oriented 3 Skin:Normal color, no rash, no lesions. HEENT:EOM, pupils equal, round and reactive. Cardiovascular:Normal S1 & S2, no rubs, murmurs or gallops. No JVD. Pulse regular. Lungs: Clear to auscultation, no wheezes or crackles. Abdomen:Soft, non-tender, no rigidity. Extremities:No deformity, no edema or tenderness, no joint swelling or clubbing. Neurological:Normal cognition and motor skills. No resting or intentional tremors. Rest of the physical exam is non contributory - Assessment and Plan (1) UGIB (upper gastrointestinal bleed) Current Visit: Yes Status: Acute Assessment and Plan: Possible gastritis, esophagitis, versus Ava-Simmons. Plan: - Patient is scheduled for EGD - Continue omeprazole 40 mg daily by mouth - Nothing by mouth - will start D5/ 0.45% normal saline for maintenance as patient nothing by mouth - will follow GI recommendation (2) Disulfiram adverse reaction Current Visit: Yes Status: Acute Assessment and Plan: Still complains of nausea. No more vomiting episode. Plan: - Continue with Zofran every 6 hours when necessary for nausea and vomiting (3) Alcohol abuse Current Visit: Yes Status: Acute Assessment and Plan: Not resting or intentional tremors, no signs of alcohol withdrawal. CIWA score # 1 Plan: - Continue lorazepam 2 mg IV every 4 hours when necessary for DT prophylaxis (4) Elevated BP without diagnosis of hypertension Current Visit: Yes Status: Acute Assessment and Plan: Blood pressure in the 140s to 150 range systolic for the past 24 hours. Elevated blood pressure possibly due to substance abuse Plan: - Continue hydralazine 10 mg every 6 hours when necessary for systolic blood pressure more than 190 (5) Drug abuse Current Visit: Yes Status: Acute (6) DVT prophylaxis Current Visit: Yes Status: Acute Assessment and Plan: Low risk of DVT. Plan: - No chemical DVT prophylaxis due to GI bleed - Mechanical DVT prophylaxis PlexiPulses - Time Spent with Patient Total time spent is greater than 50% in coordination of care (as documented) at patient's floor/unit and/or counseling patient: 25 - 35 minutes Plan of Care Discussed with: patient Internal Medicine: Result - Labs CBC & Chem 7: 11/08/17 08:23 11/08/17 08:23 Labs: Short CBC 11/08/17 Range/Units 08:23 WBC 9.5 (4.3-11.1) K/mcL Hgb 15.6 (12.9-16.9) g/dL Hct 45.1 (37.5-50.1) % Plt Count 223 (140-400) K/mcL Neutrophils # 7.4 (1.6-8.9) K/mcL BMP 11/08/17 08:23 Sodium 136 Potassium 3.7 Chloride 104 Carbon Dioxide 26 BUN 17 Creatinine 0.84 Glucose 104 Calcium 8.9 - ABG Interpretation ABG results: PT/INR, D-dimer PT 11.9 Seconds (9.4-12.1) 11/07/17 05:49 - VTE Reasons for not Prescribing Prophylaxis: Treatment not Indicated - Low risk for VTE Consult Discharge Plan - Plan Referrals: Rosa Sandoval DO [Resident] - 11/15/17 2:00 pm (PLEASE TAKE THE NEW PATIENT PACKET WITH YOU THAT YOU RECEIVE IN THE MAIL FILLED OUT TO YOUR APPOINTMENT. PLEASE TAKE WITH YOU TO YOUR APPOINTMENT INS. CARDS, PICTURE ID, ALL MEDICATIOINS INCLUDING OVER THE COUNTER MEDS TO THE APPOINTMENT. THIS OFFICE DOES NOT GIVE OUT CONTROLLED DRUGS. IF YOU NEED TO CANCEL PLEASE CALL 24 HOURS PRIOR TO YOUR APPOINTMENT) Peter Bermeo MD [Partnered Physician] - (SENT WEB REQUEST ON 11-08-17) (2) Disulfiram adverse reaction Qualifiers: Encounter type: initial encounter Qualified Code(s): T50.6X5A - Adverse effect of antidotes and chelating agents, initial encounter
--- NOTE | 2017-11-08 11:53 | Anesthesia Evaluation PreOp ---
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 Any Significant HX Other Medical History: GERD, Other (anxiety) Anesthesia History: No Prior Anesthetic Complications, Past Anesthesia Alcohol Use: heavy (quit 2 months ago, disulfiram reaction 11/05/2017) Drug use: marijuana Medications and Allergies Disulfiram [Antabuse] 250 mg PO DAILY 11/06/17 [History] 3 Allergy/AdvReac Type Severity Reaction Status Date / Time No Known Allergies Allergy Verified 11/06/17 12:45 - Meds/Allergy Pre-op Review Medications Reviewed: Yes Allergies Reviewed: Yes Beta Blockers on Current Med List: No Anesthesia Results - Labs 11/08/17 08:23 11/08/17 08:23 - Imaging EKG: report reviewed (07/19/2017 SINUS BRADYCARDIA WITH SINUS ARRHYTHMIA) Anesthesia Exam Vital Signs/O2 Sat/Glucose, Most Recent Temp Pulse Resp BP Pulse Ox 98.4 F 78 18 151/107 98 11/08/17 07:51 11/08/17 07:51 11/08/17 07:51 11/08/17 07:51 11/08/17 07:51 Blood Glucose* 169 Height: 5'7''/1.7 m Weight: 160 lbs/72.8 kg NPO (# of Hours): 8 Pain Scale: 0 Pain Scale Used: Numeric (1 - 10) - HEENT Pupil (Motor): EOMI Mallampati: III Teeth: Normal Oral Opening: Greater than 3 - ESOL TEACHER ASSISTANT LOC: Oriented ESOL TEACHER ASSISTANT Motor: Normal RUE, Normal LUE, Normal RLE, Normal LLE, Normal Face ESOL TEACHER ASSISTANT Sensory: Normal: RUE, LUE, RLE, LLE, Face - Cardiac Rhythm: Regular Murmur: None - Pulmonary Breath Sounds: bilateral Clear Respiratory Effort: Symmetrical Anesthesia Assess/Plan ASA Score: 3 Modified Jesus Scale for Level of Consciousness: Cooperative, oriented, and tranquil Anesthetic Plan: MAC Monitoring Plan: Standard Monitors
[2017-11-08] MEDS ORDERED: D5% in 0.45% NACL 1,000 ML IVC SCH (12:00)
[2017-11-08] MEDS ORDERED: *HR* Labetalol 20 MG/4 ML SYRINGE IVP ONE (12:31)
[2017-11-08] MEDS ORDERED: Pantoprazole 40 MG VIAL IVP ONE (13:28)
[2017-11-08] MEDS ORDERED: *HR* LORazepam 2 MG/ML VIAL IVP PRN ×2 (13:28)
[2017-11-09] MEDS: *HR* LORazepam 2 MG/ML VIAL IVP PRN (00:12)
[2017-11-09] MEDS: Acetaminophen 325 MG TABLET PO PRN (00:12)
[2017-11-09 06:52] VITALS: BP 151/102
[2017-11-09] MEDS: Vitamin B Complex/Vit C/Vit E 1 EACH TABLET PO SCH (08:07)
[2017-11-09] MEDS: Folic Acid 1 MG TABLET PO SCH (08:07)
[2017-11-09] MEDS: Thiamine (B-1) 100 MG TABLET PO SCH (08:07)
--- NOTE | 2017-11-09 10:33 | Discharge Summary ---
- NOTES TO OUTPATIENT PROVIDER Notes to Outpatient Provider: Follow-up with GI within a month. Follow-up with your primary care doctor to get your blood pressure checked. Orders not resulted at time of discharge: Pending orders 11/08/17 12:51 Surgical Pathology [PTH] Routine Date of Encounter: 11/09/17 Time of Encounter: 10:31 - Discharge Diagnosis (1) Acute alcoholic gastritis Priority: Primary Status: Resolved Qualifiers: Gastritis bleeding: with bleeding Qualified Code(s): K29.21 - Alcoholic gastritis with bleeding (2) UGIB (upper gastrointestinal bleed) Priority: Primary Status: Resolved Assessment and Plan: Possible due to Ava-Simmons in the setting of retching and vomiting. Status post EGD which reveled gastritis and esophagitis. (3) Disulfiram adverse reaction Priority: Secondary Status: Acute Qualifiers: Encounter type: initial encounter Qualified Code(s): T50.6X5A - Adverse effect of antidotes and chelating agents, initial encounter (4) Alcohol abuse Priority: Secondary Status: Chronic (5) Elevated BP without diagnosis of hypertension Priority: Secondary Status: Resolved (6) Drug abuse Priority: Secondary Status: Chronic (7) DVT prophylaxis Priority: Secondary Status: Chronic (8) Esophagitis Priority: Secondary Status: Acute Hospital course: Mr. Cheema is a 32 year old male past medical history significant for alcohol abuse. Patient recently started on Antabuse, but has restarted drinking alcohol. presented to the emergency room complaining of nausea or vomiting with hematemesis. Admitted for GI bleed, patient underwent EGD, which resulted as esophagitis and gastritis. No more episodes of bleeding. Patient tolerated regular diet. Hemodynamically stable to be discharged. Discharge discussed with: patient, nurse - Time Spent with Patient Total time spent providing and/or coordinating discharge services: Greater than 30 minutes - Discharge Medications Prescriptions: Omeprazole [PriLOSEC] 20 mg PO BIDAC 30 Days #60 cap Sucralfate 1 gm MC TIDWM 30 Days #90 powder Home Medications: Omeprazole [PriLOSEC] 20 mg PO BIDAC 30 Days #60 cap 11/09/17 [Rx] Sucralfate 1 gm MC TIDWM 30 Days #90 powder 11/09/17 [Rx] Allergies/Adverse Reactions: 3 Allergy/AdvReac Type Severity Reaction Status Date / Time No Known Allergies Allergy Verified 11/06/17 12:45 Date of admission: 11/06/17 16:58 Primary care physician: PCP NONE - Constitutional Vitals: Temp Pulse Resp BP Pulse Ox 98.4 F 66 18 151/102 99 11/09/17 06:49 11/09/17 08:11 11/09/17 06:49 11/09/17 06:49 11/09/17 06:49 General appearance: Present: no acute distress Exam: General: Alert and oriented 3 Skin:Normal color, no rash, no lesions. Cardiovascular:Normal S1 & S2, no rubs, murmurs or gallops. No JVD. Pulse regular. Lungs: Clear to auscultation, no wheezes or crackles. Abdomen: Soft, non-tender, no rigidity. Extremities: No deformity, no edema or tenderness, no joint swelling or clubbing. Neurological: Normal cognition and motor skills. No resting or intentional tremors. Rest of the physical exam is non contributory - Patient Status Disposition: Home, Self-Care Condition: Good Functional capacity at discharge: independent ambulation Overall status at discharge: patient is back to baseline - Discharge Instructions Follow Up With: Rosa Sandoval DO [Resident] - 11/15/17 2:00 pm (PLEASE TAKE THE NEW PATIENT PACKET WITH YOU THAT YOU RECEIVE IN THE MAIL FILLED OUT TO YOUR APPOINTMENT. PLEASE TAKE WITH YOU TO YOUR APPOINTMENT INS. CARDS, PICTURE ID, ALL MEDICATIOINS INCLUDING OVER THE COUNTER MEDS TO THE APPOINTMENT. THIS OFFICE DOES NOT GIVE OUT CONTROLLED DRUGS. IF YOU NEED TO CANCEL PLEASE CALL 24 HOURS PRIOR TO YOUR APPOINTMENT) Peter Miller MD [Partnered Physician] - (SENT WEB REQUEST ON 11-08-17 @[id number]) Additional Instructions: DR. MILLER'S OFFICE WITH CALL YOU WITH AN APPOINTMENT. PLEASE FOLLOW UP DIRECTED. PLEASE CALL DR. MILLER'S OFFICE AND RETURN TO THE ER IF SYMPTOMS RECUR OR WORSEN. - Diet and Activity Activity: increase activity as tolerated Diet: advance to your usual diet - VTE Reasons for not Prescribing Prophylaxis: Treatment not Indicated - Low risk for VTE
--- NOTE | 2017-11-09 23:07 | Electrocardiograph Report ---
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
== END 2017-11-09 11:37 | disposition home or self-care (01) | DRG 241 ==
LOC: EMEROOARM 11:06 → 2ANU 11:06 → 2NNU 15:14 → SUATTDRO 16:58 → 2NNU 17:49
PROVIDERS: ADMIT Student in an Organized Health Care Education/Training Program; ATTEND Internal Medicine
PROC: ENDOEBX (2017-11-08 13:30)

== ENCOUNTER 2019-03-10 03:02 | Inpatient (IN) ==
[2019-03-10] MEDS ORDERED: Isovue-370 500 ML BOTTLE IVP ONE (03:52)
[2019-03-10 04:03] LABS: Bilirubin,Urine Negative (Negative); Blood,Urine Trace (Negative); Clarity,Urine Clear (Clear); Color,Urine Yellow (Yellow); Glucose,Urine (UA) Normal (Normal); Ketones,Urine Negative (Negative); Leukocyte Esterase,Urine Negative (Negative); Nitrite,Urine Negative (Negative); PH,Urine 6.5 pH Units (5.0-8.0); Protein,Urine 30 mg/dL (Neg-Trace); Specific Gravity,Urine 1.009 (1.010-1.025); Urobilinogen,Urine Normal (Normal)
[2019-03-10 04:06] LABS: Bacteria,Urine None Seen per hpf (None-Few); Hyaline Casts,Urine None Seen per lpf (None-Few); RBC,Urine 0-3 per hpf (0-3); Squamous Epithelial Cell,Urine None Seen per lpf (None-Few); WBC,Urine 0-3 per hpf (0-3)
[2019-03-10 04:08] LABS: Basophils # 0.1 K/mcL (0.0-0.2); Basophils % 1.5 %; Eosinophils # 0.1 K/mcL (0.0-0.6); Eosinophils % 1.4 %; Hematocrit 45.6 % (37.5-50.1); Hemoglobin 16.5 g/dL (12.9-16.9); Immature Granulocytes % 0.4 % (0-4); Lymphocytes # 1.4 K/mcL (0.6-4.6); Lymphocytes % 26.7 %; Mean Corpuscular HGB Conc 36.2 g/dL (31.6-35.5); Mean Corpuscular Hemoglobin 32.7 pg (28.0-33.3); Mean Corpuscular Volume 90.5 fL (83.0-100.0); Mean Platelet Volume 9.5 fL (9.4-12.4); Monocytes # 0.5 K/mcL (0.0-1.3); Monocytes % 9.7 %; Neutrophils # 3.1 K/mcL (1.6-8.9); Platelet Count 320 K/mcL (140-400); Red Blood Count 5.04 M/mcL (4.19-5.50); Red Cell Distribution Width 12.1 % (11.5-14.5); Segmented Neutrophils % 60.3 %; White Blood Count 5.2 K/mcL (4.3-11.1)
[2019-03-10 04:22] LABS: Acetaminophen < 10 mcg/mL (10-20); Alanine Aminotransferase 32 Units/L (7-52); Albumin/Globulin Ratio 1.7 (1.1-2.2); Alkaline Phosphatase 87 Units/L (34-104); Aspartate Amino Transferase 35 Units/L (13-39); BUN/Creatinine Ratio 9 (6-26); Bilirubin,Total 0.4 mg/dL (0.3-1.0); Blood Urea Nitrogen 8 mg/dL (6-20); Calcium 9.2 mg/dL (8.6-10.3); Carbon Dioxide 23 mEq/L (23-29); Chloride 107 mEq/L (98-107); Ethanol 302 mg/dL (Less than 10); Glucose 116 mg/dL (70-105); Osmolality,Calculated 293 (280-300); Potassium 3.7 mEq/L (3.5-5.1); Salicylate < 2.5 mg/dL (15.0-30.0); Sodium 142 mEq/L (136-145); eGFR For African Americans > 60 (> 60); eGFR For Non-African Americans > 60 (> 60)
[2019-03-10 04:23] LABS: Amphetamine Screen,Urine Negative ng/mL (Cutoff=1000); Barbiturate Screen,Urine Negative ng/mL (Cutoff=200); Benzodiazepines Screen,Urine Negative ng/mL (Cutoff=200); Cannabinoid Screen,Urine Positive ng/mL (Cutoff = 50); Cocaine Screen,Urine Negative ng/mL (Cutoff= 300); Opiate Screen,Urine Negative ng/mL (Cutoff=300); Phencyclidine Screen,Urine Negative ng/mL (Cutoff=25)
[2019-03-10] MEDS ORDERED: 0.9 % Sodium Chloride 1,000 ML IVC ONE (06:04)
[2019-03-10] MEDS ORDERED: Acetaminophen 325 MG TABLET PO ONE (09:05)
[2019-03-10] MEDS ORDERED: Aspirin 81 MG TAB.CHEW PO ONE (20:15)
[2019-03-10] MEDS ORDERED: GI Cocktail 40 ML EACH PO ONE (20:15)
[2019-03-10] MEDS ORDERED: Ondansetron ODT 4 MG TAB.RAPDIS SL ONE (20:15)
[2019-03-10 20:59] LABS: Basophils # 0.1 K/mcL (0.0-0.2); Basophils % 1.1 %; Eosinophils # 0.1 K/mcL (0.0-0.6); Eosinophils % 1.4 %; Hematocrit 43.9 % (37.5-50.1); Immature Granulocytes % 0.4 % (0-4); Lymphocytes # 1.4 K/mcL (0.6-4.6); Lymphocytes % 16.1 %; Mean Corpuscular HGB Conc 36.4 g/dL (31.6-35.5); Mean Corpuscular Hemoglobin 32.9 pg (28.0-33.3); Mean Corpuscular Volume 90.1 fL (83.0-100.0); Mean Platelet Volume 9.4 fL (9.4-12.4); Neutrophils # 5.8 K/mcL (1.6-8.9); Platelet Count 279 K/mcL (140-400); Red Blood Count 4.87 M/mcL (4.19-5.50); Red Cell Distribution Width 11.9 % (11.5-14.5)
[2019-03-10 21:00] LABS: White Blood Count 8.4 K/mcL (4.3-11.1)
[2019-03-10 21:01] LABS: INR 1.1
[2019-03-10 21:03] LABS: Activated Partial Thrombo Time 30.8 Seconds (26.0-36.0)
[2019-03-10 21:14] LABS: BUN/Creatinine Ratio 8 (6-26); Blood Urea Nitrogen 7 mg/dL (6-20); Calcium 9.5 mg/dL (8.6-10.3); Carbon Dioxide 19 mEq/L (23-29); Chloride 103 mEq/L (98-107); Glucose 103 mg/dL (70-105); Osmolality,Calculated 282 (280-300); Potassium 3.6 mEq/L (3.5-5.1); Sodium 137 mEq/L (136-145); Troponin I < 0.03 ng/mL (< 0.04); eGFR For African Americans > 60 (> 60); eGFR For Non-African Americans > 60 (> 60)
[2019-03-11] MEDS ORDERED: cloNIDine HCl 0.1 MG TABLET PO ONE ×2 (18:45→23:56)
[2019-03-11] MEDS ORDERED: *HR* LORazepam 1 MG TABLET PO SCH (19:00)
[2019-03-11] MEDS ORDERED: Acetaminophen 325 MG TABLET PO PRN (22:08)
[2019-03-11] MEDS ORDERED: *HR* LORazepam 1 MG TABLET PO PRN (22:08)
[2019-03-11] MEDS ORDERED: Haloperidol Lactate 5 MG/ML VIAL IM PRN (22:08)
[2019-03-11] MEDS ORDERED: MOM Conc 10 ML UD.LIQ PO PRN (22:08)
[2019-03-11] MEDS ORDERED: hydrOXYzine pamoate 25 MG CAPSULE PO PRN (22:08)
[2019-03-11] MEDS ORDERED: Mag Hydrox/Al Hydrox/Simeth 30 ML UDC PO PRN (22:08)
[2019-03-11] MEDS ORDERED: *HR* LORazepam 2 MG/ML VIAL IM PRN (22:08)
[2019-03-11] MEDS ORDERED: *HR* LORazepam 1 MG TABLET PO STA (22:24)
[2019-03-11] MEDS: Thiamine (B-1) 100 MG TABLET PO SCH (23:00)
[2019-03-11] MEDS: Vitamin B Complex/Vit C/Vit E 1 EACH TABLET PO SCH (23:00)
[2019-03-11] MEDS: traZODone 50 MG TABLET PO PRN (23:04)
[2019-03-12] MEDS ORDERED: *HR* LORazepam 1 MG TABLET PO SCH ×2
[2019-03-12] MEDS: *HR* LORazepam 1 MG TABLET PO SCH ×7 (00:40→19:41)
[2019-03-12] MEDS: Folic Acid 1 MG TABLET PO SCH (08:30)
[2019-03-12] MEDS: Thiamine (B-1) 100 MG TABLET PO SCH (08:30)
[2019-03-12] MEDS: Vitamin B Complex/Vit C/Vit E 1 EACH TABLET PO SCH (08:30)
[2019-03-12] MEDS ORDERED: *HR* LORazepam 1 MG TABLET PO PRN (13:07)
[2019-03-12] MEDS: hydrOXYzine pamoate 25 MG CAPSULE PO SCH ×2 (15:39→20:50)
[2019-03-12] MEDS: traZODone 50 MG TABLET PO PRN (20:50)
[2019-03-13] MEDS ORDERED: *HR* LORazepam 1 MG TABLET PO SCH
[2019-03-13] MEDS: hydrOXYzine pamoate 25 MG CAPSULE PO SCH (08:18)
[2019-03-13] MEDS: Thiamine (B-1) 100 MG TABLET PO SCH (08:19)
[2019-03-13] MEDS: Folic Acid 1 MG TABLET PO SCH (08:19)
[2019-03-13] MEDS: Vitamin B Complex/Vit C/Vit E 1 EACH TABLET PO SCH (08:19)
[2019-03-13 08:49] VITALS: BP 141/102
[2019-03-13] MEDS ORDERED: Naltrexone HCl 50 MG TABLET PO SCH (09:00)
[2019-03-14] MEDS ORDERED: *HR* LORazepam 1 MG TABLET PO SCH
[2019-03-15] MEDS ORDERED: *HR* LORazepam 1 MG TABLET PO SCH
== END 2019-03-13 14:16 | disposition home or self-care (01) | DRG 775 ==
LOC: EMEROOARM 03:02 → 1ANU 03:02 → OBSVTOIN 03-11 18:16 → 1ANU 03-11 18:30
PROVIDERS: ADMIT Psychiatry & Neurology Forensic Psychiatry; ATTEND Psychiatry & Neurology Forensic Psychiatry